=== PATIENT | male | born 1965 ===

== ENCOUNTER 2016-08-22 22:28 | Emergency (ER) | payer SELFPAY ==
[2016-08-22 22:44] VITALS: BP 121/79
--- NOTE | 2016-08-22 23:18 | ERNOTE ---
Time Seen by Provider: 08/22/16 23:03 Stated Complaint: FEVER,DIARRHEA,COLD, Presenting Symptoms:: cough Source: patient Exam Limitations: no limitations Immunizations: IMMUNIZATION HX Immunizations Up to Date Yes History of Influenza Vaccine No Hx Pneumococcal Vaccination No Allergies/Adverse Reactions: Allergies azithromycin Allergy (Verified 08/22/16 22:44) Home Medications: HOME MEDICATIONS NK [No Home Medication] 03/17/16 [Last Taken Unknown] - History of Present Ilness Narrative: Patient has had URI symptoms for about five days. His fever and body aches stopped yesterday, still has cough and congestion, diarrhea started today (loose , 5 BMs)Multiple coworkers were sick Review of Systems - Review of Systems Constitutional: Present: See HPI, fever, chills, malaise EYE: Absent: vision changes ENT: Present: nose congestion, nasal drainage. Absent: sore throat Respiratory: Present: cough. Absent: shortness of breath Cardiology: Absent: chest pain Gastrointestinal/Abdominal: Present: diarrhea. Absent: vomiting, abdominal pain Genitourinary: Present: no symptoms reported Musculoskeletal: Present: muscle pain Skin: Absent: rash Neurological: Present: headache - Patient's Past Medical History Patient History - Medical: No pertinent hx Patient History - Cardiac/Respiratory: No pertinent hx Patient History - Cancer: No Hx of Cancer Patient History - Surgical Procedures: Appendectomy - Family History Father Family History - Cardiac/Respiratory: CVA/Stroke, Myocardial Infarction Mother Family History - Cardiac/Respiratory: Hypertension - Social History Living Situations: home Do you dip or chew tobacco: Yes Alcohol Use: occasionally Drug Use: none - Immunizations Immunizations Up to Date: Yes Hx Pneumococcal Vaccination: No History of Influenza Vaccine: No Physical Exam - Physical Exam General Appearance: Present: wd/wn, alert, no apparent distress Eye Exam: Normal inspection: bilateral, PERRL: bilateral Ears, Nose, Throat: Present: nasal congestion - and drainage, normal pharynx Neck: Absent: lymphadenopathy (R), lymphadenopathy (L) Respiratory: Present: no respiratory distress, normal breath sounds, no accessory muscle use, lungs clear Cardiovascular/Chest: Present: regular rate, rhythm, no murmur Gastrointestinal/Abdominal: Present: nontender, nondistended, soft Neurological Exam: Present: alert, oriented, normal mood/affect, no motor/ sensory deficits Skin Exam: Present: normal color, warm/dry ED Progress - Vital Signs Patient's Vital Signs:: I have reviewed the patient's vital signs. Vital Signs: Vital Signs 08/22/16 22:40 Temperature 36.8 C Pulse Rate 80 Respiratory 20 Rate Blood Pressure 121/79 O2 Sat by Pulse 97 Oximetry - Progress/Reassessment Chief Complaint: Upper Respiratory Symptoms Progress Note-Subjective: 08/22/16 23:15 discussed diagnosis with patient, as he is getting better continue symptomatic treatment positive for inluenza A, patient not in window for treatment Departure - Departure Clinical Impression: Flu-like symptoms Disposition: Home self-care Condition: Good Instructions: Upper Respiratory Infection, Adult, [id number], Form - Excuse from Work, School, or Physical Activity Referrals: Tangela Garrido MD [Staff Physician] -
== END 2016-08-22 23:22 | disposition home or self-care (01) ==
LOC: ER 22:28
DX: J10.1 Influenza due to other identified influenza virus with other respiratory manifestations (principal); Z72.0 Tobacco use